=== PATIENT | female | born 1985 ===

== ENCOUNTER 2021-06-19 13:09 | Emergency (ER) | payer SELFPAY ==
[2021-06-19 13:40] VITALS: BP 127/86
== END 2021-06-19 18:50 | disposition left against medical advice (07) ==
LOC: ED 13:09
DX: R42 Dizziness and giddiness (principal); Z53.21 Procedure and treatment not carried out due to patient leaving prior to being seen by health care provider; Z88.5 Allergy status to narcotic agent; Z91.013 Allergy to seafood

== ENCOUNTER 2021-11-13 02:01 | Emergency (ER) | payer OTHER ==
[2021-11-13 02:12] VITALS: BP 122/80
== END 2021-11-13 09:14 | disposition left against medical advice (07) ==
LOC: ED 02:01
DX: N93.9 Abnormal uterine and vaginal bleeding, unspecified (principal); Z53.21 Procedure and treatment not carried out due to patient leaving prior to being seen by health care provider